=== PATIENT | male | born 1955 | race Caucasian/White ===

== ENCOUNTER 2019-04-11 13:19 | Emergency (ER) | payer OTHER ==
[2019-04-11] MEDS ORDERED: DIPHTH,PERTUSS(ACELL),TET 0.5 ML DISP.SYRIN IM ONE ×2 (13:22→13:33)
--- NOTE | 2019-04-11 13:25 | PDOC ---
History of Present Illness - General Chief Complaint: Laceration Stated Complaint: I CUT MY HAND Time Seen by Provider: 04/11/19 13:22 History Source: Patient Exam Limitations: No Limitations - History of Present Illness Initial Comments: 04/11/19 13:23 HPI 63 YOM RH dominant presenting with right index finger laceration sustained after cutting on glass maddox he was cleaning in the sink. while he was using sponge to clean glass cup, it broke into 3 pieces and subsequently cut his right knuckle/index finger.. c/o burning pain in the right index finger no numbness/tingling, weakness, discharge or suspected FB. covered with gauze and compression. 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 unsure of tdap status. no blood thinner or antiplatelet use. Review of Systems Constitutional: no fevers or chills. MUSCULOSKELETAL: No joint pain and swelling. No muscle pain/arthralgias. +finger /hand pain. SKIN: no redness or skin changes, no discharge, no rash. +laceration wound, + bleeding. Hematologic: no easy bruising/bleeding. NEUROLOGIC: No weakness, numbness or tingling. Allergic/Immunologic: no allergies All other systems reviewed and negative, or as documented in HPI. physical exam General: NAD, well appearing Vascular: 2+ radialis pulses symmetric and equal. 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 sensation grossly intact in median/radial/ ulnar distribution. MSK: soft compartments, Cap refill <2 sec. 2+ radialis pulses bilaterally and symmetric. FDP/FDS intact. no joint tenderness. FROM. sensation intact to touch over median/radial/ulnar nerve distribution. Skin: color normal color, warm and well perfused. Linear Superficial Laceration measuring 1.5cm to dorsal aspect of right index finger proximally at the mcp joint/knuckle. nonbleeding, nontender. 04/11/19 13:31 Past History - Past Medical History Allergies/Adverse Reactions: Allergies Allergy/AdvReac Type Severity Reaction Status Date / Time No Known Allergies Allergy Verified 04/11/19 13:20 Home Medications: Ambulatory Orders Multivitamins [Tab-A-Vit -] 1 tab PO DAILY 10/08/15 [place]-3 Fatty Acids/Fish Oil [Fish Oil 1,000 mg Softgel] 1,000 mg PO DAILY 10/07 Anemia: No Asthma: No Cancer: No Cardiac Disorders: No CVA: No COPD: No CHF: No Dementia: No Diabetes: No GI Disorders: No Disorders: No HTN: No Hypercholesterolemia: Yes (BORDERLINE- NO MEDS) Liver Disease: No Seizures: No Thyroid Disease: No - Surgical History Abdominal Surgery: No Appendectomy: No Cardiac Surgery: No Cholecystectomy: No Lung Surgery: No Neurologic Surgery: No Orthopedic Surgery: No - Psycho Social/Smoking Cessation Hx Smoking History: Current every day smoker Have you smoked in the past 12 months: Yes Number of Cigarettes Smoked Daily: 10 'Breaking Loose' booklet given: 10/08/15 Hx Alcohol Use: Yes (SOCIALLY) Drug/Substance Use Hx: No Substance Use Type: Alcohol Hx Substance Use Treatment: No Procedures - Splinting Splint Location: Right: Finger (index finger) Pre-Proc Neuro Vasc Exam: normal Pre-Made Type: metal Splint Type: Yes: Finger Post-Proc Neuro Vasc Exam: normal Ricardo Bandage: yes Sling: No Complications: No Progress: 04/11/19 14:39 for finger laceration/splinting for immobilization/healing - Laceration/Wound Repair Right Dorsal Finger 2nd digit Wound Length: to 2.5 cm Wound Explored: clean Wound's Depth, Shape: superficial, linear Irrigated w/ Saline: Yes Betadine Prep: Yes Anesthesia: 1% Lidocaine Amount of Anesthetic (ccs): 1 Wound Debrided: minimal Wound Repaired With: Sutures Suture Size/Type: 5:0 Number of Sutures: 6 Layer Closure: No Sterile Dressing Applied: Yes Splint Applied: Yes Type of Splint Applied: finger splint Sling Applied: No Medical Decision Making - Medical Decision Making 04/11/19 13:26 Vital Signs Temp Pulse Resp BP Pulse Ox 98.3 F 85 15 147/94 95 04/11/19 13:20 04/11/19 13:20 04/11/19 13:20 04/11/19 13:20 04/11/19 13:20 xray of finger neg for FB or glass. tdap updated here. wound/laceration assessed and repaired, w/o complications, bleeding controlled. copious irrigation with sterile water approx 1 Liter with splash guard for high pressure, tolerated without difficulty. areas cleaned and dried, xeroform/ topical abx, non adherent dressings, gauze and supportive care. finger splint. area cleaned and dried, dressings placed with topical bacitracin. splinting of finger for immobilization/healing until laceration wound heals. monitor for signs of infection including fevers or chills, redness, streaking, swelling, purulence, malodor. keep dry x 24 hours, then may wash with soap and water 2-3X per day, topical antibiotics such as neosporin. follow up in 10-14 days for suture removal. motrin/tylenol for pain control. pt and family made aware of impression and plan. 04/11/19 13:33 04/11/19 14:02 04/11/19 14:39 Discharge - Discharge Information Problems reviewed: Yes Clinical Impression/Diagnosis: Laceration of finger of right hand Qualifiers: Encounter type: initial encounter Finger: index finger Damage to nail status: unspecified Foreign body presence: unspecified Qualified Code(s): S61.210A - Laceration without foreign body of right index finger without damage to nail, initial encounter Condition: Stable Disposition: HOME - Admission No - Follow up/Referral - Patient Discharge Instructions Patient Printed Discharge Instructions: DI for Laceration Repair Additional Instructions: Wound Discharge: keep area clean and covered, may clean with soap and water. motrin/tylenol as needed for pain control. take medications with food. Wound dressed with topical Bacitracin and sterile gauze. maintain the finger splint to immobilize your finger and laceration /wound healing, you can take it off to change the dressings/clean the wound. Keep sutures covered and dry for 24 hours then clean with soap and water daily - do not scrub. Apply bacitracin or neosporin twice a day with warm soaks and cover with xeroform (yellow antiseptic), gauze/dressings and finally the splint. Return to ED for suture removal 7 days. Return to the ED for any worsening pain, redness, streaking ( red lines), swelling, fever or chills. Keep the wound clean and as dry as possible. Do not immerse or soak the wound in water. This means no swimming, washing dishes (unless thick rubber gloves are used), baths, or hot tubs until the stitches are removed or after about two weeks if absorbable suture material was used. Leave original bandages on the wound for the first 24 hours. After this time, showering or rinsing is recommended, rather than bathing. the first day, remove old bandages and gently cleanse the wound with soap and water. Cleansing twice a day prevents buildup of debris and will result in easier suture removal. - Post Discharge Activity
[2019-04-11 13:28] VITALS: BP 147/94; PULSE 85; TEMP 98.3; BMI 30.2
== END 2019-04-11 15:03 | disposition home or self-care (01) ==
LOC: FER 13:19
PROC: 3E0234Z Introduction of Serum, Toxoid and Vaccine into Muscle, Percutaneous Approach (ICD-10-PCS; principal; 2019-04-11)
DX: S61.210A Laceration without foreign body of right index finger without damage to nail, initial encounter (principal); W25.XXXA Contact with sharp glass, initial encounter; Y93.89 Activity, other specified; Y92.89 Other specified places as the place of occurrence of the external cause; E78.00 Pure hypercholesterolemia, unspecified; F17.210 Nicotine dependence, cigarettes, uncomplicated
CPT/HCPCS: 73140-TC-RT-FY; 90715; 99282-25

== ENCOUNTER 2019-04-21 09:02 | Emergency (ER) | payer OTHER ==
[2019-04-21 09:09] VITALS: BP 150/95; BMI 29.6
--- NOTE | 2019-04-21 09:11 | PDOC ---
Suture Removal/Wound Check HPI - History of Present Illness Chief Complaint: Suture/Staple Removal(Here) Stated Complaint: SUTURE REMOVAL History Source: Yes: Patient Exam Limitations: Yes: No Limitations - Previous ED Treatment Type of procedure performed on last visit: Yes: Laceration Repair Tetanus Immunization: Yes: Up to Date - Onset of Previous Treatment Date of Occurence: 04/11/19 Comment:: 04/21/19 09:09 63 yo male h/o recent laceration to right mcp joint. s/p sutures. happend 10 days ago. cut on a tumbler while washing dishes. no redneess. no swelling. sutures intact. been keeping it covered. sutureus removed. tolerated well. dc to home. Past History - Past Medical History Allergies/Adverse Reactions: Allergies Allergy/AdvReac Type Severity Reaction Status Date / Time No Known Allergies Allergy Verified 04/21/19 09:04 Home Medications: Ambulatory Orders Multivitamins [Tab-A-Vit -] 1 tab PO DAILY 10/08/15 [place]-3 Fatty Acids/Fish Oil [Fish Oil 1,000 mg Softgel] 1,000 mg PO DAILY 10/07 Anemia: No Asthma: No Cancer: No Cardiac Disorders: No CVA: No COPD: No CHF: No Dementia: No Diabetes: No GI Disorders: No Disorders: No HTN: No Hypercholesterolemia: Yes (BORDERLINE- NO MEDS) Liver Disease: No Seizures: No Thyroid Disease: No - Surgical History Abdominal Surgery: No Appendectomy: No Cardiac Surgery: No Cholecystectomy: No Lung Surgery: No Neurologic Surgery: No Orthopedic Surgery: No - Psycho Social/Smoking Cessation Hx Smoking History: Current every day smoker Have you smoked in the past 12 months: Yes Number of Cigarettes Smoked Daily: 10 'Breaking Loose' booklet given: 10/08/15 Hx Alcohol Use: Yes (SOCIALLY) Drug/Substance Use Hx: No Substance Use Type: Alcohol Hx Substance Use Treatment: No *Physical Exam - Physical Exam 04/21/19 09:09 awake alert sutures clean dry and intact. n/v intact. Discharge - Discharge Information Problems reviewed: Yes Clinical Impression/Diagnosis: Laceration of finger of right hand, Visit for suture removal Condition: Improved Disposition: HOME - Admission No - Follow up/Referral Referrals: Jaime Workman MD [Primary Care Provider] - - Patient Discharge Instructions Patient Printed Discharge Instructions: DI for Suture Removal Additional Instructions: you can keep steri strip in place. keep clean and dry during day. open to air at night. return for any problems or concerns. you should have repeat blood pressure checked with your primary provider within one week. call to schedule. - Post Discharge Activity
== END 2019-04-21 09:21 | disposition home or self-care (01) ==
LOC: SUPCPDRO 09:02 → FER 09:02
DX: Z48.02 Encounter for removal of sutures (principal)
CPT/HCPCS: 99281-25